=== PATIENT | male | born 2000 | race Caucasian/White ===

== ENCOUNTER 2022-01-12 19:27 | Emergency (ER) | payer OTHER ==
[2022-01-12] MEDS ORDERED: CEPHALEXIN500 MG PO (21:50)
== END 2022-01-12 21:58 | disposition home or self-care (01) ==
LOC: ER1 19:27
DX: S01.81XA Laceration without foreign body of other part of head, initial encounter (principal); W22.8XXA Striking against or struck by other objects, initial encounter; Y92.009 Unspecified place in unspecified non-institutional (private) residence as the place of occurrence of the external cause
CPT/HCPCS: 12013; 70486; 99283